=== PATIENT | female | born 1985 | race Caucasian/White ===

== ENCOUNTER 2020-08-31 15:00 | Outpatient (CLI) | payer OTHER, SELFPAY ==
--- NOTE | ~2020-08-31 | XR_ITS ---
XR chest 2V DATE: 08/31/2020 15:33 INDICATION: Shortness of breath for several years. History of asthma. TECHNIQUE: PA and lateral views COMPARISON: 04/29/2019 2 view chest FINDINGS: Normal heart size. No hilar or mediastinal enlargement. The lungs appear normally inflated. No pulmonary infiltrate or consolidation, pleural effusion or pulmonary vascular congestion or pneum othorax is detected. Mild levoscoliosis of the upper thoracic spine. IMPRESSION: No active cardiopulmonary disease Reviewed, dictated and finalized at location A. [facility]
== END 2020-08-31 15:01 | disposition home or self-care (01) ==
LOC: ANHIMG 15:15
PROVIDERS: PCP Family Medicine; Visit Provider Family Medicine
DX: R06.00 Dyspnea, unspecified (principal)
CPT/HCPCS: 71046